=== PATIENT | male | born 1985 | race Caucasian/White ===

== ENCOUNTER 2016-09-08 17:09 | Emergency (ER) | payer SELFPAY ==
[~2016-09-08 17:09] MED LIST: DIPH2%T PO; PRED20 PO
[2016-09-08 17:11] VITALS: BP 117/57; PULSE 55; RESP 18; TEMP 98.5; O2SAT 99
[2016-09-08] MEDS ORDERED: IBUP-232 PO (17:52)
--- NOTE | 2016-09-08 17:59 | PD ---
HPI Chief Complaint: Musculoskeletal Complaint Time Seen by Provider: 17:53 Travel History International Travel<30 days: No Contact w/Intl Traveler<30days: No Traveled to known affect area: No History of Present Illness HPI 31-year-old male presents to the emergency room for evaluation of left knee pain and swelling for the past 2 days. 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 Patient took ibuprofen for pain which moderately relieved his symptoms. He has been able to walk but with moderate pain. Pain is localized to the medial aspect without radiation. He reports moderate pain and denies paresthesias. PFSH Past Medical History Blood Disorders: No Bipolar Disorder: Yes Anxiety: Yes Depression: Yes Cancer: No Cardiovascular Problems: No Chest Pain: Yes Diabetes: No Diminished Hearing: No Endocrine: No Genitourinary: No Immune Disorder: No Musculoskeletal: Yes Neurologic: No Psychiatric: Yes Reproductive: No Respiratory: No Immunizations Current: Yes Seizures: Yes (Alcohol induced) Tetanus Vaccination: > 5 Years Influenza Vaccination: No Past Surgical History Other Surgery: Yes Social History Alcohol Use: No Tobacco Use: Yes (1 PPD) Substance Use: No Allergies-Medications (Allergen,Severity, Reaction): Coded Allergies: No Known Allergies (Verified , 09/08/16) Reported Meds & Prescriptions Reported Meds & Active Scripts Active Ibuprofen 600 Mg Tab 600 Mg PO Q8HR PRN Review of Systems Except as stated in HPI: all other systems reviewed are Neg Physical Exam Narrative GENERAL: Well-nourished, well-developed male in no acute distress. Afebrile. Ambulatory. SKIN: Focused skin assessment warm/dry. No erythema or ecchymosis. HEAD: Normocephalic. EYES: No scleral icterus. No injection or drainage. NECK: Supple, trachea midline. No JVD or lymphadenopathy. CARDIOVASCULAR: Regular rate and rhythm without murmurs, gallops, or rubs. RESPIRATORY: Breath sounds equal bilaterally. No accessory muscle use. MUSCULOSKELETAL: No cyanosis. Very mild edema of the left medial knee. Tenderness to palpation of the same. 2+ dorsalis pedis pulse. Full range of motion of the knee. No obvious effusion. Data Data Last Documented VS Vital Signs Date Time Temp Pulse Resp B/P Pulse Ox O2 Delivery O2 Flow Rate FiO2 09/08/16 17:11 98.5 55 18 117/57 99 MDM Medical Decision Making Medical Screen Exam Complete: Yes Emergency Medical Condition: Yes Medical Record Reviewed: Yes Differential Diagnosis Sprain, strain, fracture unlikely Narrative Course 31-year-old male presents to the emergency room for evaluation of left medial knee pain after injuring it 2 days ago. 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 Lower extremity is neurovascularly intact with 2+ dorsalis pedis pulse. Full range of motion of the knee. No effusion. Very mild edema and moderate tenderness to palpation of the medial knee. Patient has been ambulatory since onset of symptoms. No indication for imaging at this time. Patient discharged with orthopedic instructions and prescription for ibuprofen. Told to follow up with PCP return for worsening symptoms. He understands and agrees to plan. Diagnosis Primary Impression: Strain of left knee Qualified Code: S86.912A - Strain of left knee, initial encounter Referrals: Primary Care Physician Patient Instructions: General Instructions, Knee Sprain (ED) Additional Instructions: Rest and drink plenty of fluids. Take ibuprofen with food as directed, as needed for pain. Apply ice to the affected area for 20 minutes at a time, as needed for pain and swelling. Follow-up with a primary care physician. Return to the emergency room for worsening symptoms. Med/Other Pt SpecificInfo: Prescription(s) given Scripts Ibuprofen 600 Mg Vsr024 Mg PO Q8HR PRN (PAIN) #21 TAB Ref 0 Prov:Sebastian Witt MD 09/08/16 Disposition: 01 DISCHARGE HOME Condition: Stable Toshia Moody Sep 08, 2016 17:59
== END 2016-09-08 18:09 | disposition home or self-care (01) ==
LOC: PHEFT 17:09
DX: S86.812A Strain of other muscle(s) and tendon(s) at lower leg level, left leg, initial encounter (principal); F17.200 Nicotine dependence, unspecified, uncomplicated; Z86.59 Personal history of other mental and behavioral disorders; Z87.39 Personal history of other diseases of the musculoskeletal system and connective tissue; Z86.69 Personal history of other diseases of the nervous system and sense organs; X58.XXXA Exposure to other specified factors, initial encounter; Y93.H2 Activity, gardening and landscaping
CPT/HCPCS: 99283